=== PATIENT | female | born 1990 | race Caucasian/White ===

== ENCOUNTER 2024-02-26 08:29 | Day surgery (SDC) | payer BC ==
[2024-02-21 08:38] VITALS: BMI 25.0
[2024-02-21 09:13] LABS: Hematocrit 38.6 % (34.9-44.5); Hemoglobin 12.4 g/dL (12.0-15.5); Mean Corpuscular HGB CONC 32.1 g/dL (32.0-36.0); Mean Corpuscular Hemoglobin 29.4 pg (27.0-33.0); Mean Corpuscular Volume 91.5 fL (81.6-98.3); Platelet Count 198 10x3/uL (150-450); RBC Distribution Width 12.4 % (11.5-14.5); Red Blood Cell (RBC) Count 4.22 10x6/uL (3.90-5.03)
[2024-02-21 10:01] LABS: BHCG - Serum Negative (NEGATIVE); Pregs Control Background? CLEAR/WHITE (CLR/WHITE); Pregs Control Bar Appear? YES (CONTROL BAR)
[2024-02-26] MEDS ORDERED: Sevoflurane 250 ML INH ANEST BOTTLE ONE (08:44)
[2024-02-26] MEDS ORDERED: Gabapentin 300 MG CAP ONE (08:53)
[2024-02-26] MEDS ORDERED: CeleCOXIB 100 MG CAP ONE (08:53)
[2024-02-26] MEDS ORDERED: Famotidine/PF 20 mg/2ml Vial ONE (08:57)
[2024-02-26] MEDS ORDERED: Midazolam HCl 2 mg/2 ml Vial ONE (09:36)
[2024-02-26] MEDS ORDERED: Bupivacaine HCl 0.5%/Epinephrine 1:200,000/PF 30 ml Vial ONE (10:05)
[2024-02-26] MEDS ORDERED: PROPOFOL 20 ML ONE (10:08)
[2024-02-26] MEDS ORDERED: fentaNYL 50 mcg/mL 1 mL Vial ONE ×4 (10:08→11:50)
[2024-02-26] MEDS ORDERED: Rocuronium Bromide 10 MG/ML (10ML VIAL) ONE (10:09)
[2024-02-26] MEDS ORDERED: Lidocaine 1% PF 5 ML VIAL ONE (10:09)
[2024-02-26] MEDS ORDERED: Dexamethasone 4 mg/ml Vial ONE (10:09)
[2024-02-26] MEDS ORDERED: Ondansetron PF 4 MG/2 ML Vial ONE (10:09)
[2024-02-26] MEDS ORDERED: CEFAZOLIN 2 GM VIAL ONE (10:22)
[2024-02-26] MEDS ORDERED: SUGAMMADEX SODIUM 200 MG/2 ML VIAL ONE (11:02)
[2024-02-26] MEDS ORDERED: Ketorolac Tromethamine 30 MG (1 mL) VIAL ONE (11:31)
[2024-02-26] MEDS ORDERED: HYDROcodone/Acetaminophen 5/325 mg Tablet PO PRN ×2 (11:55→11:56)
[2024-02-26] MEDS ORDERED: Ondansetron HCl/PF 4 MG/2 ML Vial IVP PRN (12:00)
[2024-02-26] MEDS ORDERED: Promethazine HCl 25 MG/ML VIAL IM PRN (12:00)
[2024-02-26] MEDS ORDERED: HYDROcodone/Acetaminophen 5/325 mg Tablet ONE (12:49)
== END 2024-02-26 13:25 | disposition home or self-care (01) ==
LOC: CSHSDC 08:29
PROVIDERS: ATTEND Obstetrics & Gynecology
PROC: 0UT74ZZ Resection of Bilateral Fallopian Tubes, Percutaneous Endoscopic Approach (ICD-10-PCS; principal; 2024-02-26)
DX: Z15.01 Genetic susceptibility to malignant neoplasm of breast (principal); F41.9 Anxiety disorder, unspecified; K21.9 Gastro-esophageal reflux disease without esophagitis; Z88.8 Allergy status to other drugs, medicaments and biological substances; Z88.5 Allergy status to narcotic agent; Z91.018 Allergy to other foods; Z91.013 Allergy to seafood; Z79.899 Other long term (current) drug therapy; Z98.890 Other specified postprocedural states
CPT/HCPCS: 84703; 85027; 86850; 86900; 86901; 88302; J1100; J1885; J2250; J2405; J2704; J3010; J3490